=== PATIENT | female | born 1970 | race Caucasian/White ===

== ENCOUNTER 2017-08-26 12:31 | Emergency (ER) | payer OTHER ==
[~2017-08-26] VITALS: Ht 160 cm; Wt 92.4 kg
[2017-08-26 12:33] VITALS: BP 158/77; PULSE 97; RESP 16; TEMP 99.1; O2SAT 96
[2017-08-26] MEDS ORDERED: PREV30TA3 PO (12:53)
[2017-08-26] MEDS ORDERED: ADDE20 PO (12:53)
[2017-08-26] MEDS ORDERED: ATOR80TA45 PO (12:53)
[2017-08-26] MEDS ORDERED: LOSA100T PO (12:53)
[2017-08-26] MEDS ORDERED: NORC5TAB PO (13:52)
[2017-08-26] MEDS ORDERED: IBUP1TAB7 PO (13:52)
--- NOTE | 2017-08-26 13:52 | PD ---
HPI Chief Complaint: Pain: Acute or Chronic Time Seen by Provider: 13:11 Travel History International Travel<30 days: No Contact w/Intl Traveler<30days: No Traveled to known affect area: No History of Present Illness HPI 47-year-old female here with left calf pain since this morning. She reports while playing pickle ball she pivoted on the left foot and felt a sharp pain in her left calf. The area began to swell. She reports loss of muscle definition of the calf muscle. She is able to flex and extend the foot although this causes discomfort in the calf. She reports the pain is constant, throbbing. Worse with palpation of the area and movement of the ankle and foot. Relieved with rest. Denies altered sensation or weakness of the extremity. Symptom severity is moderate. PFSH Past Medical History Hx Anticoagulant Therapy: No ADHD: Yes Cardiovascular Problems: Yes (HTN, CHOL) High Cholesterol: Yes Diabetes: No Diminished Hearing: No GERD: Yes Hypertension: Yes Tetanus Vaccination: Unknown Influenza Vaccination: No ?: Not LMP: NOW Social History Alcohol Use: Yes (RARELY) Tobacco Use: Yes (1 PPD) Substance Use: No Allergies-Medications (Allergen,Severity, Reaction): Coded Allergies: iodine (Verified Allergy, Severe, Anaphylaxis, 08/26/17) nickel (Verified Allergy, Intermediate, RASH, 08/26/17) Reported Meds & Prescriptions Reported Meds & Active Scripts Active Una (Hydrocodone-Acetaminophen) 5 Mg-325 Mg Tab 1 Tab PO Q6H PRN Ibuprofen 800 Mg Tab 800 Mg PO Q6HR PRN Reported Prevacid Solutab ODT (Lansoprazole) 30 Mg Tab 30 Mg PO DAILY Mix with 4 ml water before giving via tube. Adderall (Amphetamine-Dextroamphetamine) 20 Mg Tab 20 Mg PO DAILY Avoid late evening doses. Space doses at least 4 to 6 hours if more than once/day dosing. Losartan (Losartan Potassium) 100 Mg Tab 100 Mg PO DAILY Atorvastatin (Atorvastatin Calcium) 80 Mg Tab 80 Mg PO HS Review of Systems Except as stated in HPI: all other systems reviewed are Neg General / Constitutional: No: Fever Physical Exam Narrative GENERAL: Alert and well-appearing 47-year-old female SKIN: Warm and dry. HEAD: Normocephalic. EYES: No scleral icterus. No injection or drainage. NECK: Supple, trachea midline. CARDIOVASCULAR: Regular rate and rhythm without murmurs, gallops, or rubs. RESPIRATORY: Breath sounds equal bilaterally. No accessory muscle use. GASTROINTESTINAL: Abdomen soft, non-tender, nondistended. MUSCULOSKELETAL: No cyanosis. Left lower extremity: +TTP mild swelling to the left calf. Compartments are soft. Negative Cm test. patient can plantarflex and dorsiflex the foot. Sensation with sharp/dull recognition intact. Palpable DP pulse. Brisk cap refill BACK: Nontender without obvious deformity. No CVA tenderness. Data Data Last Documented VS Vital Signs Date Time Temp Pulse Resp B/P (MAP) Pulse Ox O2 Delivery O2 Flow Rate FiO2 08/26/17 12:54 97 16 08/26/17 12:33 99.1 158/77 (104) 96 Orders Orders Splint Or Brace Apply/Monitor (08/26/17 13:45) Ketorolac Inj (Toradol Inj) (08/26/17 14:00) MDM Medical Decision Making Medical Screen Exam Complete: Yes Emergency Medical Condition: Yes Differential Diagnosis Calf muscle tear, Achilles tendon injury, strain/strain Narrative Course 47-year-old female here with calf muscle injury. Achilles tendon appears to be intact. She is able to plantarflex and dorsiflex the foot. She does have swelling in the left calf. Compartments are soft. Posterior short leg splint applied. Crutches provided. Patient is to follow-up with orthopedic Diagnosis Primary Impression: Strain of calf muscle Qualified Codes: S86.812A - Strain of other muscle(s) and tendon(s) at lower leg level, left leg, initial encounter Referrals: Barry Torres Jr., MD,Herrera Franklin MD, MD Orthopedist Additional Instructions: Splint as directed. Just for weightbearing. Medication as directed. Schedule follow-up appointment with orthopedic. Return if he have new or worsening symptoms Scripts Hydrocodone-Acetaminophen (Una) 5 Mg-325 Mg Tab 1 TAB PO Q6H Y for PAIN, #10 TAB 0 Refills Prov: Erika Cortes 08/26/17 Ibuprofen (Ibuprofen) 800 Mg Tab 800 MG PO Q6HR Y for PAIN, #40 TAB 0 Refills Prov: Erkia Cortes 08/26/17 Disposition: 01 DISCHARGE HOME Condition: Stable Erika Cortes Aug 26, 2017 13:52
[2017-08-26] MEDS ORDERED: KETOROLAC TROMETHAMINE 60 MG/2 ML (IM) VIAL IM ONE (14:00)
== END 2017-08-26 14:13 | disposition home or self-care (01) ==
LOC: PHEFT 12:31
DX: S86.812A Strain of other muscle(s) and tendon(s) at lower leg level, left leg, initial encounter (principal); F90.9 Attention-deficit hyperactivity disorder, unspecified type; I10 Essential (primary) hypertension; E78.00 Pure hypercholesterolemia, unspecified; K21.9 Gastro-esophageal reflux disease without esophagitis; F17.200 Nicotine dependence, unspecified, uncomplicated; X50.1XXA Overexertion from prolonged static or awkward postures, initial encounter; Y93.69 Activity, other involving other sports and athletics played as a team or group; Z79.899 Other long term (current) drug therapy
CPT/HCPCS: 29515; 96372; 99283; E0113; J1885

== ENCOUNTER 2017-11-07 11:06 | Observation (INO) ==
[2017-11-07 11:47] LABS: Bilirubin,Urine Negative (Negative); Clarity,Urine Clear (Clear); Color,Urine Yellow (Yellw/Straw); Glucose,Urine (UA) Negative (Negative); Leukocyte Esterase,Urine Negative (Negative); Nitrite,Urine Negative (Negative); Urobilinogen,Urine 0.2 mg/dL (Less than 2)
[2017-11-07 11:52] LABS: RBC,Urine 0-3 /hpf (0-3); Squamous Epithelial Cell,Urine 0-5 /hpf (0-5)
--- NOTE | 2017-11-07 11:52 | ED ---
HPI General Chief Complaint: Chest Pain Stated Complaint: Chest Pain radiate to left arm X5days Time Seen by Provider: 11/07/17 11:51 History of Present Illness HPI narrative: 47-year-old female presented ER for evaluation of chest pain that comes and goes for the last week. Pain is rated 3 out of 10, chest, radiates to her back, associated with left arm numbness that comes and goes, when pain comes and lasts for about 20 seconds and goes away on its own, not related to exercise or physical activity, she has history of hypertension that she takes losartan for it, high cholesterol, she smokes 15 cigarettes for the last 30+ years, family history of cardiac problems and her father and cousin ages less than 50. Complete Quality Measures for STEMI Alert Patients Related Data Home Medications Medication Instructions Recorded Confirmed atorvastatin 80 mg PO DAILY 11/07/17 11/07/17 losartan 100 mg PO DAILY 11/07/17 11/07/17 Allergies Allergy/AdvReac Type Severity Reaction Status Date / Time iodine Allergy Severe Anaphylaxis Verified 11/07/17 11:22 nickel Allergy Intermediate RASH Verified 11/07/17 11:22 Review of Systems Except as stated in HPI: all other systems reviewed are negative [facility] Social History Social History Substance History: No History of Abuse Second Hand Smoke Exposure: No Smoking Status: Current every day smoker Tobacco Type: Cigarettes How Often Do You Have a Drink Containing Alcohol: Never Recent Travel in [facility] within the Last 8 Weeks: No Recent Out of Country Travel within the Last 8 Weeks: No Immunization History Tetanus Immunization: >5 Years Hx Influenza Vaccine This Season: No Exam Narrative Exam Narrative: GENERAL: Alert oriented 3 no acute distress SKIN: Focused skin assessment warm/dry. HEAD: Atraumatic. Normocephalic. EYES: Pupils equal and round. No scleral icterus. No injection or drainage. ENT: No nasal bleeding or discharge. Mucous membranes pink and moist. NECK: Trachea midline. No JVD. CARDIOVASCULAR: Regular rate and rhythm. No murmur appreciated. RESPIRATORY: No accessory muscle use. Clear to auscultation. Breath sounds equal bilaterally. GASTROINTESTINAL: Abdomen soft, non-tender, nondistended. Hepatic and splenic margins not palpable. MUSCULOSKELETAL: No obvious deformities. No clubbing. No cyanosis. No edema. NEUROLOGICAL: Awake and alert. No obvious cranial nerve deficits. Motor grossly within normal limits. Normal speech. PSYCHIATRIC: Appropriate mood and affect; insight and judgment normal. Course Initial Documented Vital Signs Temperature 98.7 F 11/07/17 11:18 Pulse Rate 86 11/07/17 11:18 Respiratory Rate 18 11/07/17 11:18 Blood Pressure 158/113 H 11/07/17 11:18 Pulse Oximetry 100 11/07/17 11:18 Last Documented Vital Signs Temperature 98.7 F 11/07/17 11:18 Pulse Rate 86 11/07/17 11:18 Respiratory Rate 18 11/07/17 11:18 Blood Pressure 158/113 H 11/07/17 11:18 Pulse Oximetry 100 11/07/17 11:18 Medical Decision Making MDM Narrative Medical decision making narrative: 47-year-old female here for evaluation of chest pain comes and goes worse recently, past medical history of hypertension and dyslipidemia and long-standing history of smoking, family history of heart attacks at age less than 50. She has high heart score and will benefit from a 23-hour observation. First troponin is negative, EKG shows T wave inversion in V2, V3. Elevated d-dimer but she has anaphylaxis from iodine. Spoke with Dr. Molina who gladly accepted the patient. Lab Data Result diagrams: 11/07/17 12:10 11/07/17 12:20 Lab Results 11/07/17 11/07/17 11/07/17 Range/Units 11:20 11:30 12:10 CBC w Diff Auto diff final WBC 13.9 H (4.0-11.0) th/mm3 RBC 4.87 (4.00-5.30) mil/mm3 Hgb 15.4 H (11.6-15.3) gm/dL Hct 45.4 (35.0-46.0) % MCV 93.2 (80.0-100.0) fL MCH 31.5 (27.0-34.0) pg MCHC 33.9 (32.0-36.0) % RDW 12.4 (11.6-17.2) % Plt Count 275 (150-450) th/mm3 MPV 8.8 (7.0-11.0) fL Neut % (Auto) 73.8 H (16.0-70.0) % Lymph % (Auto) 18.5 (9.0-44.0) % Leake % (Auto) 5.1 (0.0-8.0) % Eos % (Auto) 1.7 (0.0-4.0) % Baso % (Auto) 0.9 (0.0-2.0) % Neut # (Auto) 10.3 H (1.8-7.7) th/mm3 Lymph # (Auto) 2.6 (1.0-4.8) th/mm3 [place] # (Auto) 0.7 (0.0-0.9) th/mm3 Eos # (Auto) 0.2 (0.0-0.4) th/mm3 Baso # (Auto) 0.1 (0.0-0.2) th/mm3 WBC Differential . PT (9.8-11.6) sec INR Ratio APTT (24.3-30.1) sec D-Dimer Quant (PE/DVT) (0.00-0.50) mg/L FEU Sodium (136-145) meq/L Potassium (3.5-5.1) meq/L Chloride (98-107) meq/L Carbon Dioxide (21.0-32.0) meq/L Anion Gap (5-15) meq/L BUN (7-18) mg/dL Creatinine (0.50-1.00) mg/dL Estimated GFR (>89) mL/min Random Glucose (74-106) mg/dL Calcium (8.5-10.1) mg/dL Total Bilirubin (0.2-1.0) mg/dL AST (15-37) U/L ALT (10-53) U/L Alkaline Phosphatase (45-117) U/L Total Creatine Kinase (26-192) U/L CK-MB (CK-2) (0.5-3.6) ng/mL Troponin I (0.02-0.05) ng/mL B-Natriuretic Peptide (0-100) pg/mL Total Protein (6.4-8.2) g/dL Albumin (3.4-5.0) g/dL Lipase (73-393) U/L Urine Color Yellow (Yellw/Straw) Urine Clarity Clear (Clear) Urine pH 8.0 (5.0-8.5) Ur Specific [place] 1.010 (1.002-1.035) Urine Protein Negative (Neg-Trace) mg/dL Urine Glucose (UA) Negative (Negative) mg/dL Urine Ketones Negative (Negative) mg/dL Urine Occult Blood Large H (Negative) Urine Nitrate Negative (Negative) Urine Bilirubin Negative (Negative) Urine Urobilinogen 0.2 (Less than 2) mg/dL Ur Leukocyte Esterase Negative (Negative) Urine RBC 0-3 (0-3) /hpf Ur Squamous Epith Cells 0-5 (0-5) /hpf Micro UA Comment Culture not ind Urine Culture Comments Culture not ind Urine Opiates Screen Neg (Neg) Ur Barbiturates Screen Neg (Neg) Ur Amphetamines Screen Neg (Neg) U Benzodiazepines Scrn Neg (Neg) Urine Cocaine Screen Neg (Neg) U Cannabinoids Screen Pos (Neg) 11/07/17 11/07/17 11/07/17 Range/Units 12:20 12:20 12:20 CBC w Diff WBC (4.0-11.0) th/mm3 RBC (4.00-5.30) mil/mm3 Hgb (11.6-15.3) gm/dL Hct (35.0-46.0) % MCV (80.0-100.0) fL MCH (27.0-34.0) pg MCHC (32.0-36.0) % RDW (11.6-17.2) % Plt Count (150-450) th/mm3 MPV (7.0-11.0) fL Neut % (Auto) (16.0-70.0) % Lymph % (Auto) (9.0-44.0) % Leake % (Auto) (0.0-8.0) % Eos % (Auto) (0.0-4.0) % Baso % (Auto) (0.0-2.0) % Neut # (Auto) (1.8-7.7) th/mm3 Lymph # (Auto) (1.0-4.8) th/mm3 [place]ake # (Auto) (0.0-0.9) th/mm3 Eos # (Auto) (0.0-0.4) th/mm3 Baso # (Auto) (0.0-0.2) th/mm3 WBC Differential PT 9.8 (9.8-11.6) sec INR 1.0 Ratio APTT 27.8 (24.3-30.1) sec D-Dimer Quant (PE/DVT) 0.95 H (0.00-0.50) mg/L FEU Sodium (136-145) meq/L Potassium (3.5-5.1) meq/L Chloride (98-107) meq/L Carbon Dioxide (21.0-32.0) meq/L Anion Gap (5-15) meq/L BUN (7-18) mg/dL Creatinine (0.50-1.00) mg/dL Estimated GFR (>89) mL/min Random Glucose (74-106) mg/dL Calcium (8.5-10.1) mg/dL Total Bilirubin (0.2-1.0) mg/dL AST (15-37) U/L ALT (10-53) U/L Alkaline Phosphatase (45-117) U/L Total Creatine Kinase 109 (26-192) U/L CK-MB (CK-2) 1.0 (0.5-3.6) ng/mL Troponin I Less than 0.02 L (0.02-0.05) ng/mL B-Natriuretic Peptide 24 (0-100) pg/mL Total Protein (6.4-8.2) g/dL Albumin (3.4-5.0) g/dL Lipase 175 (73-393) U/L Urine Color (Yellw/Straw) Urine Clarity (Clear) Urine pH (5.0-8.5) Ur Specific [place] (1.002-1.035) Urine Protein (Neg-Trace) mg/dL Urine Glucose (UA) (Negative) mg/dL Urine Ketones (Negative) mg/dL Urine Occult Blood (Negative) Urine Nitrate (Negative) Urine Bilirubin (Negative) Urine Urobilinogen (Less than 2) mg/dL Ur Leukocyte Esterase (Negative) Urine RBC (0-3) /hpf Ur Squamous Epith Cells (0-5) /hpf Micro UA Comment Urine Culture Comments Urine Opiates Screen (Neg) Ur Barbiturates Screen (Neg) Ur Amphetamines Screen (Neg) U Benzodiazepines Scrn (Neg) Urine Cocaine Screen (Neg) U Cannabinoids Screen (Neg) 11/07/17 Range/Units 12:20 CBC w Diff WBC (4.0-11.0) th/mm3 RBC (4.00-5.30) mil/mm3 Hgb (11.6-15.3) gm/dL Hct (35.0-46.0) % MCV (80.0-100.0) fL MCH (27.0-34.0) pg MCHC (32.0-36.0) % RDW (11.6-17.2) % Plt Count (150-450) th/mm3 MPV (7.0-11.0) fL Neut % (Auto) (16.0-70.0) % Lymph % (Auto) (9.0-44.0) % [place]ake % (Auto) (0.0-8.0) % Eos % (Auto) (0.0-4.0) % Baso % (Auto) (0.0-2.0) % Neut # (Auto) (1.8-7.7) th/mm3 Lymph # (Auto) (1.0-4.8) th/mm3 [place]ake # (Auto) (0.0-0.9) th/mm3 Eos # (Auto) (0.0-0.4) th/mm3 Baso # (Auto) (0.0-0.2) th/mm3 WBC Differential PT (9.8-11.6) sec INR Ratio APTT (24.3-30.1) sec D-Dimer Quant (PE/DVT) (0.00-0.50) mg/L FEU Sodium 141 (136-145) meq/L Potassium 3.9 (3.5-5.1) meq/L Chloride 108 H (98-107) meq/L Carbon Dioxide 26.3 (21.0-32.0) meq/L Anion Gap 7 (5-15) meq/L BUN 8 (7-18) mg/dL Creatinine 0.67 (0.50-1.00) mg/dL Estimated GFR Greater than 89 (>89) mL/min Random Glucose 86 (74-106) mg/dL Calcium 8.7 (8.5-10.1) mg/dL Total Bilirubin 0.3 (0.2-1.0) mg/dL AST 11 L (15-37) U/L ALT 31 (10-53) U/L Alkaline Phosphatase 62 (45-117) U/L Total Creatine Kinase (26-192) U/L CK-MB (CK-2) (0.5-3.6) ng/mL Troponin I (0.02-0.05) ng/mL B-Natriuretic Peptide (0-100) pg/mL Total Protein 7.2 (6.4-8.2) g/dL Albumin 3.8 (3.4-5.0) g/dL Lipase (73-393) U/L Urine Color (Yellw/Straw) Urine Clarity (Clear) Urine pH (5.0-8.5) Ur Specific [place] (1.002-1.035) Urine Protein (Neg-Trace) mg/dL Urine Glucose (UA) (Negative) mg/dL Urine Ketones (Negative) mg/dL Urine Occult Blood (Negative) Urine Nitrate (Negative) Urine Bilirubin (Negative) Urine Urobilinogen (Less than 2) mg/dL Ur Leukocyte Esterase (Negative) Urine RBC (0-3) /hpf Ur Squamous Epith Cells (0-5) /hpf Micro UA Comment Urine Culture Comments Urine Opiates Screen (Neg) Ur Barbiturates Screen (Neg) Ur Amphetamines Screen (Neg) U Benzodiazepines Scrn (Neg) Urine Cocaine Screen (Neg) U Cannabinoids Screen (Neg) Imaging Data Radiologist's impression: ITS Impressions Chest X-Ray 11/07/17 12:00 CONCLUSION: Negative examination. Discharge Plan Discharge Disposition Patient Disposition: 02 Transfer to [facility] Physicians Team ED Provider: Kush Lira Primary Care Provider: Norma Simmons Rxs /Orders / Referrals /Forms Prescriptions: No Action atorvastatin 80 mg Tablet 80 mg PO DAILY RF: 0 losartan 100 mg Tablet 100 mg PO DAILY RF: 0 Discharge Instructions Patient Printed Instructions: Chest Pain (ED) Status ED Status: In Room
[2017-11-07] MEDS ORDERED: Aspirin 325 MG Tablet PO ONE (12:00)
[2017-11-07 12:12] LABS: Baso # (Auto) 0.1 th/mm3 (0.0-0.2); Baso % (Auto) 0.9 % (0.0-2.0); Eos # (Auto) 0.2 th/mm3 (0.0-0.4); Eos % (Auto) 1.7 % (0.0-4.0); Hematocrit 45.4 % (35.0-46.0); Hemoglobin 15.4 gm/dL (11.6-15.3); Lymph # (Auto) 2.6 th/mm3 (1.0-4.8); Lymph % (Auto) 18.5 % (9.0-44.0); Mean Corpuscular HGB Conc 33.9 % (32.0-36.0); Mean Corpuscular Hemoglobin 31.5 pg (27.0-34.0); Mean Corpuscular Volume 93.2 fL (80.0-100.0); Mean Platelet Volume 8.8 fL (7.0-11.0); Mono # (Auto) 0.7 th/mm3 (0.0-0.9); Mono % (Auto) 5.1 % (0.0-8.0); Neut # (Auto) 10.3 th/mm3 (1.8-7.7); Neut % (Auto) 73.8 % (16.0-70.0); Platelet Count 275 th/mm3 (150-450); Red Blood Count 4.87 mil/mm3 (4.00-5.30); Red Cell Distribution Width 12.4 % (11.6-17.2); White Blood Count 13.9 th/mm3 (4.0-11.0)
[2017-11-07 12:41] LABS: Chloride 108 meq/L (98-107); Potassium 3.9 meq/L (3.5-5.1); Sodium 141 meq/L (136-145)
[2017-11-07 12:43] LABS: Opiate Screen,Urine Neg (Neg)
[2017-11-07 12:44] LABS: Albumin 3.8 g/dL (3.4-5.0); Calcium 8.7 mg/dL (8.5-10.1); Lipase 175 U/L (73-393)
[2017-11-07 12:44] LABS: Cannabinoid Screen,Urine Pos (Neg); Cocaine Screen,Urine Neg (Neg)
[2017-11-07 12:45] LABS: Anion Gap 7 meq/L (5-15); Blood Urea Nitrogen 8 mg/dL (7-18); Carbon Dioxide 26.3 meq/L (21.0-32.0); Glucose,Random 86 mg/dL (74-106)
[2017-11-07 12:47] LABS: Barbiturate Screen,Urine Neg (Neg)
[2017-11-07 12:47] LABS: Glomerular Filtration Rate Greater Than 89 mL/min (>89)
[2017-11-07 12:48] LABS: Alanine Aminotransferase 31 U/L (10-53); Aspartate Aminotransferase 11 U/L (15-37)
[2017-11-07 12:49] LABS: Activated Partial Thrombo Time 27.8 sec (24.3-30.1); Prothrombin Time 9.8 sec (9.8-11.6)
[2017-11-07 12:49] LABS: Amphetamine Screen,Urine Neg (Neg)
[2017-11-07 12:50] LABS: Creatine Kinase 109 U/L (26-192); Total Protein 7.2 g/dL (6.4-8.2)
[2017-11-07 12:51] LABS: Alkaline Phosphatase 62 U/L (45-117)
[2017-11-07 12:52] LABS: D-Dimer 0.95 mg/L FEU (0.00-0.50)
--- NOTE | 2017-11-07 13:06 | XR ---
EXAM DATE: 11/07/2017 1:03 PM EDT AGE/SEX: 47 years / Female INDICATIONS: Chest pain. CLINICAL DATA: This is the patient's initial encounter. Patient reports that signs and symptoms have been present for 4 - 6 days and indicates a pain score of 6/10. MEDICAL/SURGICAL HISTORY: None. None. COMPARISON: No prior exams available for comparison. FINDINGS: A single AP view of the chest demonstrates the lungs to be symmetrically aerated without evidence of mass, infiltrate or effusion. The cardiomediastinal contours are unremarkable. Osseous structures a re intact. CONCLUSION: Negative examination. Electronically signed by: Sebas Swann MD 11/07/2017 1:05 PM EDT
--- NOTE | 2017-11-07 15:39 | P.HPIM ---
History of Present Illness Primary Care Physician: Norma Simmons Chief Complaint: Chest pain History of Present Illness: This patient is a 47-year-old female with a history of hypertension and gastroesophageal reflux disease who comes to the hospital complaining of chest pain for the last 5 days. It was severe and intermittent. It lasts about 20 seconds and is located in the middle of her chest. There are no aggravating or relieving factors. Patient does note that she has some numbness in both arms which comes and goes as well. For this she has been receiving career information specialist as well as massage therapy. Notably she has GERD for which she takes Prevacid daily. She notes no recent fevers or chills. No previous cardiac history. Her father had a heart attack in his early 50s and the patient does smoke 15 cigarettes at least for the last 30 years. Patient is admitted to the hospital at this time my review of her chest x-ray and her EKG showed no acute ischemic changes and no acute cardiopulmonary findings. Patient will be recommended for further evaluation observation the chest pain unit. - Diagnosis (1) Chest pain (2) HTN (hypertension) (3) Radicular pain - Inpatient Certification If this patient has been admitted as an Inpatient: I certify that the inpatient services were ordered in accordance with Medicare regulations governing the order. This includes certification that hospital inpatient services are reasonable and necessary and in the case of services not specified as inpatient-only under 42 CFR 419.22(n), that they are appropriately provided as inpatient services in accordance to with the 2-midnight benchmark under 43 CFR 412.3(e) Review of Systems All other systems reviewed negative except as stated in HPI Cardiovascular: Reports chest pain Neurologic: Reports tingling/numbness/burning sensations PMFSH - History History Provided By: Patient - Medical History Medical History: Medical History (Last Updated 11/07/17 @ 15:28 by Joan Molina MD) Hyperlipidemia (Acute) Dyspepsia (Acute) - Tobacco History Second Hand Smoke Exposure: No Tobacco Use In Past 30 Days: No Smoking Status: Current every day smoker Tobacco Type: Cigarettes - Alcohol History How Often Do You Have a Drink Containing Alcohol: Never - Substance Use History Substance History: No History of Abuse - Travel History Recent Travel in the [place] Within the Last 8 Weeks: No Recent Travel Out of the Country Within the Last 8 Weeks: No - Immunization History Tetanus Immunization: >5 Years Hx Influenza Vaccine This Season: No Medications and Allergies Active Medications: Active Medications Pantoprazole Sodium (Protonix) 40 mg PO DAILY STEPHON Sodium Chloride (Ns Flush) 2 ml IV.FLUSH BID STEPHON Sodium Chloride (Ns Flush) 2 ml IV.FLUSH PRN PRN PRN Reason: FLUSH AFTER USING IV ACCESS Allergies Allergy/AdvReac Type Severity Reaction Status Date / Time iodine Allergy Severe Anaphylaxis Verified 11/07/17 11:22 nickel Allergy Intermediate RASH Verified 11/07/17 11:22 Home Medications Medication Instructions Recorded Confirmed Type atorvastatin 80 mg PO DAILY 11/07/17 11/07/17 History losartan 100 mg PO DAILY 11/07/17 11/07/17 History Exam Vital signs: Vital Signs 11/07/17 11:18 Temperature 98.7 F Pulse Rate 86 Respiratory Rate 18 Blood Pressure 158/113 H Pulse Oximetry 100 Intake & Output 11/06/17 11/07/17 11/07/17 18:59 06:59 18:59 Weight 96.5 kg - Constitutional no acute distress, average body habitus - Routine HEENT Exam Head: Present: normocephalic, atraumatic Eye: Present: EOMI, PERRL - Routine Neck Exam Present: supple - Routine Chest/Breast/Axilla Exam Chest wall: Present: tenderness (point tenderness left scapula) - Routine Respiratory Exam Present: CTA bilaterally - Routine Cardiovascular Exam Present: RRR, S1, S2 - Routine Abdominal Exam Present: soft, normoactive bowel sounds - Routine Skin Exam Present: intact - Routine Neurological Exam Present: alert Results - Labs CBC & Chem 7: 11/07/17 12:10 11/07/17 12:20 Labs: Short CBC 11/07/17 Range/Units 12:10 WBC 13.9 H (4.0-11.0) th/mm3 Hgb 15.4 H (11.6-15.3) gm/dL Hct 45.4 (35.0-46.0) % Plt Count 275 (150-450) th/mm3 BMP 11/07/17 12:20 Sodium 141 Potassium 3.9 Chloride 108 H Carbon Dioxide 26.3 BUN 8 Creatinine 0.67 Calcium 8.7 Cardiac Enzymes 11/07/17 Range/Units 12:20 Total Creatine Kinase 109 (26-192) U/L CK-MB (CK-2) 1.0 (0.5-3.6) ng/mL Troponin I Less than 0.02 L (0.02-0.05) ng/mL Liver Function 11/07/17 Range/Units 12:20 Total Bilirubin 0.3 (0.2-1.0) mg/dL AST 11 L (15-37) U/L ALT 31 (10-53) U/L Alkaline Phosphatase 62 (45-117) U/L Albumin 3.8 (3.4-5.0) g/dL Urine 11/07/17 Range/Units 11:20 Urine Color Yellow (Yellw/Straw) Urine Clarity Clear (Clear) Urine pH 8.0 (5.0-8.5) Ur Specific [place] 1.010 (1.002-1.035) Urine Protein Negative (Neg-Trace) mg/dL Urine Glucose (UA) Negative (Negative) mg/dL - Imaging Impressions Chest X-Ray 11/07/17 12:00 CONCLUSION: Negative examination. Caprini VTE Risk Assessment Caprini VTE Risk Assessment: No/Low Risk (score <= 1) Caprini Risk Assessment Model: Point Value = 1 Point Value = 2 Point Value = 3 Point Value = 5 Age 41-60 Minor surgery BMI > 25 kg/m2 Swollen legs Varicose veins or History of unexplained or recurrent spontaneous Oral contraceptives or hormone replacement Sepsis (< 1 month) Serious lung disease, including pneumonia (< 1 month) Abnormal pulmonary function Acute myocardial infarction Congestive heart failure (< 1 month) History of inflammatory bowel disease Medical patient at bed rest Age 61-74 Arthroscopic surgery Major open surgery (> 45 min) Laparoscopic surgery (> 45 min) Malignancy Confined to bed (> 72 hours) Immobilizing plaster cast Central venous access Age >= 75 History of VTE Family history of VTE Factor V Leiden Prothrombin 30601A Lupus anticoagulant Anticardiolipin antibodies Elevated serum homocysteine Heparin-induced thrombocytopenia Other congenital or acquired thrombophilia Stroke (< 1 month) Elective arthroplasty Hip, pelvis, or leg fracture Acute spinal cord injury (< 1 month) Prophylaxis Regimen: Total Risk Factor Score Risk Level Prophylaxis Regimen 0-1 Low Early ambulation 2 Moderate Order ONE of the following: *Sequential Compression Device (SCD) *Heparin 5000 units SQ BID 3-4 Higher Order ONE of the following medications: *Heparin 5000 units SQ TID *Enoxaparin/Lovenox 40 mg SQ daily (WT < 150 kg, CrCl > 30 mL/min) *Enoxaparin/Lovenox 30 mg SQ daily (WT < 150 kg, CrCl > 10-29 mL/min) *Enoxaparin/Lovenox 30 mg SQ BID (WT < 150 kg, CrCl > 30 mL/min) AND/OR *Sequential Compression Device (SCD) 5 or more Highest Order ONE of the following medications: *Heparin 5000 units SQ TID (Preferred with Epidurals) *Enoxaparin/Lovenox 40 mg SQ daily (WT < 150 kg, CrCl > 30 mL/min) *Enoxaparin/Lovenox 30 mg SQ daily (WT < 150 kg, CrCl > 10-29 mL/min) *Enoxaparin/Lovenox 30 mg SQ BID (WT < 150 kg, CrCl > 30 mL/min) AND *Sequential Compression Device (SCD) Assessment and Plan - Assessment (1) Chest pain Code(s): R07.9 - Chest pain, unspecified Status: Acute Plan: Continue cardiac evaluation in this patient with multiple risk factors family history, hypertension and tobacco history. Continue with telemetry, cardiac enzymes Cardiac stress test in a.m. (2) HTN (hypertension) Code(s): I10 - Essential (primary) hypertension Status: Chronic Plan: Controlled, continue losartan (3) Radicular pain Code(s): M54.10 - Radiculopathy, site unspecified Status: Chronic Plan: Follow-up cervical spine Patient's pain may actually be musculoskeletal Continue with Tylenol
[2017-11-07] MEDS ORDERED: Acetaminophen 500 MG Tablet PO ONE (16:00)
[2017-11-07 16:19] LABS: Creatine Kinase 98 U/L (26-192)
[2017-11-07 19:09] LABS: Creatine Kinase 90 U/L (26-192)
--- NOTE | 2017-11-08 08:32 | P.DS ---
Date of admission: 11/07/17 14:16 Primary care physician: Norma Simmons Attending physician on discharge: Joanclare Molina Anticipated date of discharge: 11/08/17 Brief History from admission: This patient is a 47-year-old female with a history of hypertension and gastroesophageal reflux disease who comes to the hospital complaining of chest pain for the last 5 days. It was severe and intermittent. It lasts about 20 seconds and is located in the middle of her chest. There are no aggravating or relieving factors. Patient does note that she has some numbness in both arms which comes and goes as well. For this she has been receiving youth care worker as well as massage therapy. Notably she has GERD for which she takes Prevacid daily. She notes no recent fevers or chills. No previous cardiac history. Her father had a heart attack in his early 50s and the patient does smoke 15 cigarettes at least for the last 30 years. Patient is admitted to the hospital at this time my review of her chest x-ray and her EKG showed no acute ischemic changes and no acute cardiopulmonary findings. Patient will be recommended for further evaluation observation the chest pain unit. DS: Diagnosis - Discharge Diagnosis (1) Chest pain Status: Acute (2) Radicular pain Status: Chronic DS: Medications - Discharge Medications Prescriptions: pantoprazole 40 mg PO DAILY #30 tab DS: Summary Hospital Course: 47-year-old female with known history of hypertension, hyperlipidemia , tobacco use of heart disease who presented to the emergency department for evaluation of 5 day history of chest pain. Patient states that the pain was located in her back and cause paresthesia in her upper extremities. Due to the patient's increased risk factors patient was recommended admission to the hospital to the chest pain center for further evaluation. Patient has undergone full workup with cardiac enzymes, serial EKGs which did not indicate any acute coronary syndrome. Patient states that she has had cardiac workup done approximately 5 years ago with stress test. However, at this time patient does not want to pursue any further testing. Patient was counseled on her increased risk factors in need to rule out any underlying ischemia with cardiac stress testing. Patient deferring it at this time. Patient does not want any provocative testing. I did day camp counselor patient on risk of acute coronary event upon leaving the hospital if she does have some underlying ischemia. Patient does acknowledge and accept the risk. I did explain to the patient she needs to follow-up with her primary medical doctor for further evaluation. Patient clinically stable at this time. We will plan discharge accordingly. - Time Spent with Patient Total time spent providing and/or coordinating discharge services: Greater than 30 minutes - Quality: VTE Deep Vein Thrombosis/Pulmonary Embolism Present on Admission: No Exam Vital signs: Vital Signs 11/07/17 11:18 11/07/17 15:09 11/07/17 16:00 Temperature 98.7 F 97.9 F Pulse Rate 86 75 Respiratory Rate 18 16 Blood Pressure 158/113 H 129/80 Pulse Oximetry 100 99 97 11/07/17 20:00 11/07/17 20:10 11/08/17 00:00 Temperature 98.1 F 96.8 F L Pulse Rate 72 76 Respiratory Rate 20 20 Blood Pressure 141/88 H 129/77 Pulse Oximetry 98 98 98 11/08/17 04:00 Temperature 96.6 F L Pulse Rate 63 Respiratory Rate 20 Blood Pressure 111/67 Pulse Oximetry 97 Intake & Output 11/07/17 11/08/17 11/08/17 18:59 06:59 18:59 Intake Total 360 / 360 1200 / 1200 Output Total 0 / 0 Balance 360 / 360 1200 / 1200 Weight 98.2 kg 98.2 kg Intake: Oral 360 / 360 1200 / 1200 Output: Stool 0 / 0 Other: # Voids 2 3 # Incontinent Voids 0 # Urine Diapers 0 Date of Last Bowel Movement 11/07/17 # Bowel Movements 2 Narrative: GENERAL: Well-developed, well-nourished, in no acute distress. alert and orientated extraocular muscles are intact. Conjunctivae were clear. NECK: Supple without any masses. Trachea midline no deviation. No JVD, patient does have hypertonicity noted of the paraspinal musculature and cervical spine. On palpation of C3-C4 patient did have reoccurrence of paresthesia in the left upper extremity. CARDIAC: Regular rhythm, regular rate. S1/S2 are heard. No murmurs gallops or rubs. LUNGS: Clear to auscultation bilaterally. No wheeze, rhonchi or rales. No use of accessory muscles on inspiration or expiration. ABDOMEN: Soft, nontender. Nondistended. Bowel sounds heard in all 4 quadrants. No organomegaly or masses. Negative rebound, negative guarding EXTREMITIES: No edema, pulses are equal bilaterally. No cyanosis or clubbing NEUROLOGY: Mood and affect appear appropriate. Cranial nerves II through XII grossly intact. Moving all extremities, speech is clear Results Procedures completed during hospitalization: None Labs on day of discharge: Labs from last 24 hours 11/07/17 11/07/17 11/07/17 18:15 15:15 12:20 CBC w Diff WBC RBC Hgb Hct MCV MCH MCHC RDW Plt Count MPV Neut % (Auto) Lymph % (Auto) Hardy % (Auto) Eos % (Auto) Baso % (Auto) Neut # (Auto) Lymph # (Auto) Hardy # (Auto) Eos # (Auto) Baso # (Auto) WBC Differential PT INR APTT D-Dimer Quant (PE/DVT) Sodium 141 Potassium 3.9 Chloride 108 H Carbon Dioxide 26.3 Anion Gap 7 BUN 8 Creatinine 0.67 Estimated GFR Greater than 89 Random Glucose 86 Calcium 8.7 Total Bilirubin 0.3 AST 11 L ALT 31 Alkaline Phosphatase 62 Total Creatine Kinase 90 98 CK-MB (CK-2) Troponin I Less than 0.02 L Less than 0.02 L B-Natriuretic Peptide Total Protein 7.2 Albumin 3.8 Lipase Urine Color Urine Clarity Urine pH Ur Specific Amelia Urine Protein Urine Glucose (UA) Urine Ketones Urine Occult Blood Urine Nitrate Urine Bilirubin Urine Urobilinogen Ur Leukocyte Esterase Urine RBC Ur Squamous Epith Cells Micro UA Comment Urine Culture Comments Urine Opiates Screen Ur Barbiturates Screen Ur Amphetamines Screen U Benzodiazepines Scrn Urine Cocaine Screen U Cannabinoids Screen 11/07/17 11/07/17 11/07/17 12:20 12:20 12:20 CBC w Diff WBC RBC Hgb Hct MCV MCH MCHC RDW Plt Count MPV Neut % (Auto) Lymph % (Auto) Hardy % (Auto) Eos % (Auto) Baso % (Auto) Neut # (Auto) Lymph # (Auto) Hardy # (Auto) Eos # (Auto) Baso # (Auto) WBC Differential PT 9.8 INR 1.0 APTT 27.8 D-Dimer Quant (PE/DVT) 0.95 H Sodium Potassium Chloride Carbon Dioxide Anion Gap BUN Creatinine Estimated GFR Random Glucose Calcium Total Bilirubin AST ALT Alkaline Phosphatase Total Creatine Kinase 109 CK-MB (CK-2) 1.0 Troponin I Less than 0.02 L B-Natriuretic Peptide 24 Total Protein Albumin Lipase 175 Urine Color Urine Clarity Urine pH Ur Specific Amelia Urine Protein Urine Glucose (UA) Urine Ketones Urine Occult Blood Urine Nitrate Urine Bilirubin Urine Urobilinogen Ur Leukocyte Esterase Urine RBC Ur Squamous Epith Cells Micro UA Comment Urine Culture Comments Urine Opiates Screen Ur Barbiturates Screen Ur Amphetamines Screen U Benzodiazepines Scrn Urine Cocaine Screen U Cannabinoids Screen 11/07/17 11/07/17 11/07/17 12:10 11:30 11:20 CBC w Diff Auto diff final WBC 13.9 H RBC 4.87 Hgb 15.4 H Hct 45.4 MCV 93.2 MCH 31.5 MCHC 33.9 RDW 12.4 Plt Count 275 MPV 8.8 Neut % (Auto) 73.8 H Lymph % (Auto) 18.5 Hardy % (Auto) 5.1 Eos % (Auto) 1.7 Baso % (Auto) 0.9 Neut # (Auto) 10.3 H Lymph # (Auto) 2.6 Hardy # (Auto) 0.7 Eos # (Auto) 0.2 Baso # (Auto) 0.1 WBC Differential . PT INR APTT D-Dimer Quant (PE/DVT) Sodium Potassium Chloride Carbon Dioxide Anion Gap BUN Creatinine Estimated GFR Random Glucose Calcium Total Bilirubin AST ALT Alkaline Phosphatase Total Creatine Kinase CK-MB (CK-2) Troponin I B-Natriuretic Peptide Total Protein Albumin Lipase Urine Color Yellow Urine Clarity Clear Urine pH 8.0 Ur Specific Amelia 1.010 Urine Protein Negative Urine Glucose (UA) Negative Urine Ketones Negative Urine Occult Blood Large H Urine Nitrate Negative Urine Bilirubin Negative Urine Urobilinogen 0.2 Ur Leukocyte Esterase Negative Urine RBC 0-3 Ur Squamous Epith Cells 0-5 Micro UA Comment Culture not ind Urine Culture Comments Culture not ind Urine Opiates Screen Neg Ur Barbiturates Screen Neg Ur Amphetamines Screen Neg U Benzodiazepines Scrn Neg Urine Cocaine Screen Neg U Cannabinoids Screen Pos - Impressions ITS Impressions Cervical Spine CT 11/07/17 00:00 CONCLUSION: 1. Negative CT scan of the cervical spine. I do not see an etiology of patient' s left-sided neck pain 2. MRI would be of benefit to further evaluate this radicular pain. Chest X-Ray 11/07/17 12:00 CONCLUSION: Negative examination. Discharge Plan - Discharge Disposition Patient Disposition: 01 Discharge Home - Discharge Condition Condition: Stable - Discharge Order Discharge Orders: Discharge Order (Routine); Ordered 11/08/17 Ordered By: Agus Valdez - Discharge Details Anticipated Discharge Date: 11/08/17 - Physicians Team Primary Care Provider: Norma Simmons Attending Provider: Joan Molina - Rxs /Orders / Referrals /Forms Prescriptions: New pantoprazole 40 mg Tablet,Delayed Release (Dr/Ec) 40 mg PO DAILY Qty: 30 RF: 0 Continue atorvastatin 80 mg Tablet 80 mg PO DAILY losartan 100 mg Tablet 100 mg PO DAILY Referrals: Norma Simmons M.D. [Primary Care Provider] - See Instructions - Post Discharge Care Plan Care Plan Goals: Your Health Problems: Goals to Promote Your Health: * To prevent worsening of your condition * To maintain your health at the optimal level Directions to Meet Your Goals: * Take your medications as prescribed * Follow your dietary instruction * Follow activity as directed * Keep your appointments as scheduled * Take your immunizations and boosters as scheduled * If your symptoms worsen call your PCP * If no PCP go to Urgent Care or Emergency Room Smoking is dangerous to your health. Avoid second hand smoke. You may reach the 24-hour crisis hotline for domestic abuse at .
--- NOTE | 2017-11-08 08:52 | ECG ---
Date Performed: 11/07/2017 Time Performed: 11:47:03 PTAGE: 47 years EKG: Sinus rhythm NORMAL ECG NO PREVIOUS TRACING DOCTOR: Akhil Jim Interpretating Date/Time 11/08/2017 08:50:42
--- NOTE | 2017-11-08 11:26 | ECG ---
Date Performed: 11/07/2017 Time Performed: 15:43:52 PTAGE: 47 years EKG: Sinus rhythm NORMAL ECG Since the PREVIOUS TRACING , no significant change noted PREVIOUS TRACIN11/07/2017 11.47 DOCTOR: Tl Gardner Interpretating Date/Time 11/08/2017 11:25:47
--- NOTE | 2017-11-08 11:28 | ECG ---
Date Performed: 11/07/2017 Time Performed: 18:10:16 PTAGE: 47 years EKG: Sinus rhythm NONSPECIFIC T-WAVE ABNORMALITY BORDERLINE ECG T WAVES ARE FLATTER COMPARED TO PRIOR TRAICNG PREVIOUS TRACING : 11/07/2017 15.43 DOCTOR: Tl Gardner Interpretating Date/Time 11/08/2017 11:26:39
== END 2017-11-08 09:48 | disposition home or self-care (01) ==
LOC: PH3 11:06 → PHED 11:06 → PH3 16:02
PROVIDERS: ADMIT Hospitalist; ATTEND Hospitalist